=== PATIENT | female | born 1950 | race Caucasian/White ===

== ENCOUNTER 2019-09-11 13:20 | Observation (INO) | payer OTHER ==
[~2019-09-11] VITALS: Ht 157.5 cm; Wt 68.0 kg
[2019-09-11] MEDS ORDERED: MOVANTIK25 MG PO (13:44)
[2019-09-11] MEDS ORDERED: PRISTIQ50 MG PO (13:44)
[2019-09-11] MEDS ORDERED: VITAMIN D5000 UNI1 PO (13:44)
[2019-09-11] MEDS ORDERED: PERCOCET 10-321 EAC1 PO (13:44)
[2019-09-11] MEDS ORDERED: COZAAR50 MG (13:44)
[2019-09-11] MEDS ORDERED: ZANAFLEX6 MG PO (13:45)
[2019-09-11 14:39] LABS: BASOPHILS 0.5 % (0-2); EOSINOPHILS 2.9 % (0-7); HEMATOCRIT 47.5 % (36.0-48.0); HEMOGLOBIN 15.3 g/dL (12-16); IMMATURE GRANULOCYTES 0.2 % (0-5); MCH 30.2 pg (26.0-34.0); MCHC 32.2 g/dL (31.0-37.0); MCV 93.7 fL (80.0-100.0); MEAN PLATELET VOLUME 10.2 fL (7.4-10.4); MONOCYTES 10.8 % (2-11); NEUTROPHILS 66.6 % (40-80); PLATELET COUNT 226 10x3/uL (130-400); RBC 5.07 10x6/uL (4.00-5.40); RDW 12.6 % (11.5-14.5); WBC 9.4 10x3/uL (4.8-10.8)
[2019-09-11 14:50] LABS: CALC OSMOLALITY 277 mosm/kg (275-300); CALCIUM 9.6 mg/dL (8.5-10.1); CHLORIDE - SERUM 102 mmol/L (98-107); CREATININE - SERUM 1.1 mg/dL (0.6-1.3); GLUCOSE 102 mg/dL (74-106); POTASSIUM - SERUM 3.9 mmol/L (3.5-5.1); SODIUM 137 mmol/L (136-145); UREA NITROGEN 23 mg/dL (7-18); eGFR NON AFRICAN AMERICAN 52 mL/min (90-120)
[2019-09-11 14:53] LABS: BACTERIA FEW /hpf (NEGATIVE); BILIRUBIN NEGATIVE (NEGATIVE); GLUCOSE NEGATIVE (NEGATIVE); KETONE NEGATIVE (NEGATIVE); NITRITE NEGATIVE (NEGATIVE); RED CELLS - URINE OCC /hpf (0-5); SPECIFIC GRAVITY 1.025 (1.005-1.020); UROBILINOGEN NORMAL (NORMAL); WHITE CELLS - URINE 0-5 /hpf (NEGATIVE)
[2019-09-11 14:58] LABS: ALBUMIN 4.7 g/dL (3.4-5.0); ALKALINE PHOSPHATASE 116 U/L (30-120); ALT (SGPT) 23 U/L (10-68); AMYLASE - SERUM 53 U/L (25-115); BILIRUBIN - TOTAL 0.78 mg/dL (0.2-1.3); LIPASE 127 U/L (73-393); PROTEIN - SERUM 8.1 g/dL (6.4-8.2); TROPONIN-I < 0.017 ng/mL (0.000-0.060)
[2019-09-11] MEDS ORDERED: LEVOFLOXACIN500 MG PO (16:02)
[2019-09-11 17:18] VITALS: BP 166/98
--- NOTE | 2019-09-11 18:28 | NUR ---
GB U/S ORDERED, TALKED TO SHANON IN ER, GB SURGICALLY OUT PER CT REPORT. I READ HIM THE CT SUMMARY AND HE CANCELLED GB U/S AND IS ORDERING A MRCP WAS RECOMMENDED BY DR MUÑIZ. SHANON WAS INFORMED. NEYMAR,RDMS
--- NOTE | 2019-09-11 19:00 | NUR ---
REPORT TO MARY ELLEN MALDONADO
[2019-09-11 19:30] VITALS: BP 150/90
--- NOTE | 2019-09-11 20:02 | NUR ---
PT PROVIDED WITH SOUP BROTH AND LEMON [place] SODA.
--- NOTE | 2019-09-11 20:42 | NUR ---
PT AMBULATED TO THE RESTROOM INDEPENDENTLY
--- NOTE | 2019-09-11 21:30 | NUR ---
PT AMBULATED TO THE RESTROOM INDEPENDENTLY
[2019-09-11] MEDS ORDERED: AMBIEN5 MG PO (22:38)
[2019-09-11] MEDS ORDERED: COZAAR50 MG PO (22:39)
[2019-09-12 00:55] LABS: APTT 32.2 SECONDS (22.8-39.4); INR 1.02 (0.85-1.17); PROTIME 13.4 SECONDS (11.6-15.0)
[2019-09-12 04:00] VITALS: BP 102/53
[2019-09-12 06:31] LABS: BASOPHILS 0.4 % (0-2); EOSINOPHILS 2.1 % (0-7); HEMATOCRIT 38.5 % (36.0-48.0); IMMATURE GRANULOCYTES 0.3 % (0-5); LYMPHOCYTES 19.6 % (15-50); MCH 29.3 pg (26.0-34.0); MCHC 31.2 g/dL (31.0-37.0); MCV 94.1 fL (80.0-100.0); MEAN PLATELET VOLUME 10.4 fL (7.4-10.4); MONOCYTES 9.2 % (2-11); NEUTROPHILS 68.4 % (40-80); PLATELET COUNT 186 10x3/uL (130-400); RBC 4.09 10x6/uL (4.00-5.40); RDW 12.6 % (11.5-14.5)
[2019-09-12 06:55] LABS: ALBUMIN 3.4 g/dL (3.4-5.0); ANION GAP 12.3 mmol/L (8-16); BILIRUBIN - TOTAL 0.76 mg/dL (0.2-1.3); CALCIUM 8.7 mg/dL (8.5-10.1); CARBON DIOXIDE 22.9 mmol/L (21.0-32.0); CREATININE - SERUM 0.9 mg/dL (0.6-1.3); MAGNESIUM - SERUM 1.9 mg/dL (1.8-2.4); POTASSIUM - SERUM 4.2 mmol/L (3.5-5.1)
[2019-09-12 07:05] LABS: WBC 6.8 10x3/uL (4.8-10.8)
--- NOTE | 2019-09-12 07:20 | NUR ---
RECIEVE REPORT. RESTING IN BED WITH EYES CLOSED. NO SIGNS OF DISTRESS. CONTINUE PLAN OF CARE AND SAFETY PRECAUTIONS.
[2019-09-12 09:41] VITALS: BP 159/71
[2019-09-12 13:43] VITALS: BP 180/86
[2019-09-12 14:05] VITALS: Ht 157.5 cm; Wt 68.0 kg
[2019-09-12 17:16] VITALS: BP 104/52
[2019-09-12 20:00] VITALS: BP 112/60
[2019-09-13] VITALS: BP 113/59
--- NOTE | 2019-09-13 02:46 | NUR ---
RESTING WITH EYES CLOSED, RESPERATIONS EVEN, NO S/S DISTRESS NOTED.
[2019-09-13 04:00] VITALS: BP 150/74
[2019-09-13 05:39] LABS: BASOPHILS 0.3 % (0-2); EOSINOPHILS 3.3 % (0-7); HEMATOCRIT 36.6 % (36.0-48.0); HEMOGLOBIN 11.8 g/dL (12-16); IMMATURE GRANULOCYTES 0.2 % (0-5); LYMPHOCYTES 24.9 % (15-50); MCH 29.9 pg (26.0-34.0); MCHC 32.2 g/dL (31.0-37.0); MCV 92.7 fL (80.0-100.0); MEAN PLATELET VOLUME 10.2 fL (7.4-10.4); MONOCYTES 10.4 % (2-11); NEUTROPHILS 60.9 % (40-80); PLATELET COUNT 166 10x3/uL (130-400); RBC 3.95 10x6/uL (4.00-5.40); RDW 12.3 % (11.5-14.5)
[2019-09-13 06:03] LABS: ALBUMIN 3.5 g/dL (3.4-5.0); BILIRUBIN - TOTAL 0.46 mg/dL (0.2-1.3); CALCIUM 8.3 mg/dL (8.5-10.1); CARBON DIOXIDE 26.6 mmol/L (21.0-32.0); MAGNESIUM - SERUM 1.8 mg/dL (1.8-2.4); POTASSIUM - SERUM 3.6 mmol/L (3.5-5.1)
--- NOTE | 2019-09-13 09:05 | NUR ---
REPORT RECEIVED. WILL CONTINUE WITH POC. UPON ENTERING THE ROOM PT WAS SLEEPING PEACEFULLY WITH EYES CLOSED. RR EVEN AND UNLABORED. I CRACKED THE DOOR OPEN AND INTRODUCED MYSELF SHE IMMEDIATELY BEGAN TO DEMAND DILUADID. AWARE THAT SHE RECEIVED A DOSE @0500, SHE BEGGED FOR ME TO REQUEST A LARGER DOSE MORE FREQUENTLY FROM THE DOCTOR. NOTIFIED MARCOS SANDOVAL. PT COULD NOT PINPOINT THE LOCATION OF HER PAIN BUT STATED THAT IT WAS LEVEL 10 ON A 1-10 SCALE. PT THEN BEGAN TO LAUGH AND TALK ABOUT HER NIGHT IF THE PAIN HAD QUICKLY SUBSIDED. I BEGAN TO EXIT THE ROOM, THE PT REQUESTED AGAIN THAT I ADMINISTER HER A LARGER DOSE OF DILUADID IN SPITE OF INSTRUCTING HER THAT IT WAS NOT YET TIME AND THE FREQUENCY THE MEDICATION WAS ORDERED.
--- NOTE | 2019-09-13 11:08 | NUR ---
ENTERED THE ROOM WITH THE PATIENT RESTING. WHEN SHE NOTICIED THAT I WAS IN THE ROOM SHE IMMEDIATELY BEGAN TO CRY OUT IN PAIN. PT DEMANDED I GIVE HER DILUADID 15 MINUTES EARLY. INSTRUCTED THAT I COULD NOT DO SO AND THAT I WOULD ADMININSTER IT IT WAS TIME TO DO SO. SHE REFUSED TO TAKE THE PERCOCET THAT WAS ORDERED PRN STATING THAT IT WOULD NOT WORK. ADMININSTERED ORDERED DOSE OF DILUADID @1100 AND THE PATIENT REQUESTED THAT I USE THE FLUSH STATING "JUST SLAM IT IN." INSTRUCTED THAT I WOULD NOT DO SO. ADMINISTERED PER PROTOCOL. WILL CTM.
[2019-09-13 11:22] VITALS: BP 144/80
[2019-09-13 14:57] VITALS: BP 173/82
--- NOTE | 2019-09-13 17:19 | NUR ---
BLADDER SCAN PERFORMED WITH APPROX 95ML OF URINE OUTPUT RECORDED. WILL CTM.
[2019-09-13 17:33] LABS: BILIRUBIN NEGATIVE (NEGATIVE); GLUCOSE NEGATIVE (NEGATIVE); KETONE NEGATIVE (NEGATIVE); NITRITE NEGATIVE (NEGATIVE); UROBILINOGEN NORMAL (NORMAL)
[2019-09-13 18:54] VITALS: BP 184/99
--- NOTE | 2019-09-13 19:28 | NUR ---
XRAY AT BED SIDE.
--- NOTE | 2019-09-13 19:38 | NUR ---
TELEPHONE RECORDER AT BED SIDE, SET PT UP FOR SHOWER.
[2019-09-13 20:00] VITALS: BP 184/93
--- NOTE | 2019-09-13 22:34 | NUR ---
ANSWERED CL. PT ASKING FOR A ZANAFLEX, INFORMED PT THAT SHE ALREADY HAD IT WITH HER NIGHT MEDS EARLIER. PT ASKED IF SHE COULD HAVE ANOTHER ONE BECAUSE SHE TAKES 2 TABLETS AT HOME, I AGAIN INFORMED HER THAT I GAVE HER 6 MG, IT WAS 1.5 TABS AND I CANT GIVE HER ANY MORE AT THIS TIME. PT THEN STATED THAT SHE WILL NEED HER DIALUDID AT 11.
--- NOTE | 2019-09-13 23:03 | NUR ---
DILAUDID GIVEN AT PT REQUEST FOR C/O PAIN TO LEFT LEG. RATES PAIN AT A 7 ON PAIN SCALE.
[2019-09-14 04:00] VITALS: BP 114/59
[2019-09-14 05:02] LABS: BASOPHILS 0.4 % (0-2); EOSINOPHILS 3.3 % (0-7); HEMATOCRIT 37.8 % (36.0-48.0); HEMOGLOBIN 11.9 g/dL (12-16); IMMATURE GRANULOCYTES 0.4 % (0-5); LYMPHOCYTES 29.4 % (15-50); MCH 29.2 pg (26.0-34.0); MCHC 31.5 g/dL (31.0-37.0); MCV 92.6 fL (80.0-100.0); MONOCYTES 13.3 % (2-11); NEUTROPHILS 53.2 % (40-80); PLATELET COUNT 175 10x3/uL (130-400); RBC 4.08 10x6/uL (4.00-5.40); RDW 12.4 % (11.5-14.5); WBC 5.4 10x3/uL (4.8-10.8)
[2019-09-14 05:21] LABS: ALBUMIN 3.5 g/dL (3.4-5.0); ANION GAP 9.4 mmol/L (8-16); BILIRUBIN - TOTAL 0.53 mg/dL (0.2-1.3); CALCIUM 8.5 mg/dL (8.5-10.1); CARBON DIOXIDE 29.5 mmol/L (21.0-32.0); CREATININE - SERUM 1.1 mg/dL (0.6-1.3); MAGNESIUM - SERUM 1.8 mg/dL (1.8-2.4); POTASSIUM - SERUM 3.9 mmol/L (3.5-5.1); PROTEIN - SERUM 6.2 g/dL (6.4-8.2)
[2019-09-14] MEDS ORDERED: LEVAQUIN750 MG PO (08:21)
[2019-09-14] MEDS ORDERED: FLAGYL500 MG PO (08:22)
[2019-09-14 09:34] VITALS: BP 109/50
--- NOTE | 2019-09-14 13:15 | NUR ---
PT DISCHARGED HOME VIA WHEELCHAIR WITH FAMILY. TELEMETRY REMOVED AND RETURNED. PIV REMOVED WITH CATHETER TIP FULLY INTACT. PT SIGNED DISCHARGE INSTRUCTIONS AND REMOVED ALL VALUABLES FROM THE ROOM. BRADY CALLED IN TO RHINA AT [facility].
== END 2019-09-14 13:16 | disposition home or self-care (01) ==
LOC: D.ER 13:20 → D.M2 17:57 → OBSVTIME 17:57 → D.M2 09-14 13:16
PROVIDERS: Family Medicine; Internal Medicine Gastroenterology; ADMIT Family Medicine; ATTEND Family Medicine
DX: K52.9 Noninfective gastroenteritis and colitis, unspecified (principal); I10 Essential (primary) hypertension; F32.9 Major depressive disorder, single episode, unspecified; K83.8 Other specified diseases of biliary tract